=== PATIENT | male | born 1950 | race Caucasian/White ===

== ENCOUNTER 2019-04-07 01:48 | Outpatient (CLI) | payer MEDICARE ==
[2019-04-07 16:13] LABS: #Basophils 0.1 thou/uL (0.0-0.2); #Eosinphils 0.1 thou/uL (0.0-0.7); #Lymphocytes 1.4 thou/uL (1.20-3.40); #Monocytes 0.6 thou/uL (0.11-0.59); #Neutrophils 5.5 thou/uL (1.40-6.50); %Basophils 0.7 % (0.0-1.0); %Lymphocytes 18.3 % (21.0-51.0); %Monocytes 7.6 % (0.0-10.0); %Neutrophils 72.4 % (42.0-75.0); Hemoglobin 17.3 g/dL (14.0-18.0); Mean Corpuscular HGB CONC 32.6 g/dL (32.0-36.0); Mean Corpuscular Hemoglobin 29.9 pg (27.0-31.0); Mean Corpuscular Volume 91.8 fL (78.0-98.0); Mean Platelet Volume 6.8 fL (7.4-10.4); Platelet Count 175 thou/uL (130-400); RBC Distribution Width 14.3 % (11.5-14.5); Red Blood Cell (RBC) Count 5.77 mill/uL (4.70-6.10); White Blood Cell (WBC) Count 7.6 thou/uL (4.8-10.8)
[2019-04-07 16:18] LABS: PTT 31.4 SEC (22.9-36.1); Prothrombin Time 13.7 SEC (12.0-14.7)
[2019-04-07 16:34] LABS: Anion Gap 14 mmol/L (10-20); BUN (Urea Nitrogen) 9 mg/dL (8.4-25.7); Calc. Creatinine Clearance 0 mL/min (70-130); Calcium 9.6 mg/dL (7.8-10.44); Carbon Dioxide 25 mmol/L (23-31); Chloride 102 mmol/L (98-107); Estimated GFR-MDRD 62; Glucose 92 mg/dL (80-115); Sodium 137 mmol/L (136-145)
[2019-04-07 16:36] LABS: Bilirubin Negative (Negative); Blood, Urine Negative (Negative); Clarity CLEAR (Clear); Glucose, Urine (Dipstick) Negative (Negative); Leukocyte Negative (Negative); Nitrite Negative (Negative); Protein, Urine (Dipstick) Negative (Neg-Trace); Specific Gravity, Urine 1.007 (1.002-1.036); Urobilinogen 0.2 mg/dL (0.2-1.0)
[2019-04-07 16:37] LABS: Bacteria/HPF None Seen HPF (None Seen); Hyaline Casts/LPF 0-3 HYALINE CAST LPF (0-3 Hyaline); RBC/HPF 0-3 HPF (0-3); Squamous Epithelial None Seen HPF (0-3); WBC/HPF None Seen HPF (0-3)
--- NOTE | 2019-04-08 21:25 | EKG ---
Test Reason : Blood Pressure : / mmHG Vent. Rate : 057 BPM Atrial Rate : 057 BPM P-R Int : 168 ms QRS Dur : 096 ms QT Int : 426 ms P-R-T Axes : 065 -38 -07 degrees QTc Int : 414 ms Sinus bradycardia Left axis deviation Inferior infarct (cited on or before 30-APR-2017) Abnormal ECG When compared with ECG of 30-APR-2017 12:32, Sinus rhythm has replaced Atrial flutter Vent. rate has decreased BY 66 BPM Questionable change in initial forces of Inferior leads Confirmed by Servando PINEDA ([id number]) on 04/08/2019 9:25:02 PM Referred By: LUDWIN Confirmed By:Servando PINEDA
== END 2019-04-07 01:49 | disposition home or self-care (01) ==
LOC: LABBT 01:48
PROVIDERS: ATTEND Orthopaedic Surgery
DX: Z01.818 Encounter for other preprocedural examination (principal); M17.11 Unilateral primary osteoarthritis, right knee
CPT/HCPCS: 80048; 81001; 85025; 85610; 85730; 87081; 93005; 93010

== ENCOUNTER 2019-04-18 06:54 | Inpatient (IN) | payer MEDICARE ==
--- NOTE | 2019-04-14 13:14 | HP ---
HISTORY OF PRESENT ILLNESS: The patient is a 68-year-old male with a long history of progressive problems with the right knee without specific injury. He has had progressive pain with ambulation, which is persistent despite rest, restriction of activities, anti-inflammatory medications, and lifestyle adjustments. The pain is now interfering with day-to-day activities including walking, getting dressed, working and sleeping. PAST MEDICAL HISTORY: The patient is otherwise in good health. He has history of hypertension, thyroid replacement, hyperlipidemia, gout, and previous atrial fibrillation which was resolved. He has had a previous medial implant spacer in his left knee in [place] years ago and still functioning reasonably well. CURRENT MEDICATIONS: Include: 1. Vortioxetine. 2. Viagra. 3. Colchicine p.r.n. 4. Losartan. 5. Levothyroxine. 6. Pantoprazole. 7. P.r.n. Valium. ALLERGIES: HE HAS NO KNOWN ALLERGIES. FAMILY HISTORY: Otherwise unremarkable. SOCIAL HISTORY: Otherwise unremarkable. REVIEW OF SYSTEMS: Otherwise unremarkable. PHYSICAL EXAMINATION: GENERAL: This is a healthy male. HEENT: Unremarkable. NECK: Supple. CHEST: Clear. HEART: Regular rate and rhythm. ABDOMEN: Soft, nontender. RECTAL: Deferred. GENITAL: Deferred. EXTREMITIES: Pertinent findings of the right knee, there is mild puffiness. No definite effusion. There is moderate varus deformity. There is tenderness and crepitus over the medial joint line. Range of motion is 10 to 120 degrees. There is no instability. NEUROVASCULAR: Intact. Pulses are 2+. There is a right antalgic gait. DIAGNOSTIC STUDIES: X-rays of the right knee reveal [id number] collapse medially. IMPRESSION: 1. Degenerative arthritis, right knee. 2. History of hypertension. 3. History of thyroid replacement. 4. History of hyperlipidemia. PLAN: Right total knee replacement. The nature of the surgery, length of recovery, and potential complications such as infection, loss of motion, incomplete relief, delayed wound healing, neurovascular injury, thromboembolic embolic phenomena, possible transfusion, and need for revision have been discussed in detail. Job ID: [id number]
[2019-04-18] MEDS ORDERED: Sodium Chloride 0.9% 100 ML ONE (07:15)
[2019-04-18] MEDS ORDERED: Tranexamic Acid 1,000 MG/10 ML VIAL ONE ×2 (07:15→13:16)
[2019-04-18] MEDS ORDERED: Vancomycin HCl 1.5 GM in Sodium Chloride 0.9% 250 ML 300 ML IVPB SCH ×2 (07:15→20:00)
[2019-04-18] MEDS ORDERED: Midazolam HCl 2 mg/2 ml Vial ONE (07:42)
[2019-04-18] MEDS ORDERED: Fentanyl 100 MCG/2 ML VIAL ONE ×3 (07:42→12:12)
[2019-04-18] MEDS ORDERED: Ondansetron PF 4 MG/2 ML Vial IVP PRN ×2 (07:54→13:04)
[2019-04-18] MEDS ORDERED: Promethazine HCl 25 MG/ML VIAL IM PRN (07:54)
[2019-04-18] MEDS ORDERED: Ropivacaine HCl/PF 250 ML in Premix Bag 1 BAG NERVE BLCK SCH (07:54)
[2019-04-18] MEDS ORDERED: traMADol HCl 50 MG TAB PO PRN ×3 (07:54→13:04)
[2019-04-18] MEDS ORDERED: Zolpidem Tartrate 5 MG TAB PO PRN ×2 (07:54→13:04)
[2019-04-18] MEDS ORDERED: Fentanyl 100 MCG/2 ML VIAL SLOW IVP PRN ×3 (07:54→13:04)
[2019-04-18] MEDS ORDERED: Bupivacaine/Epinephrine 0.25% 30 ML VIAL ONE (09:05)
[2019-04-18] MEDS ORDERED: Ropivacaine 0.5% HCl/PF (150 MG/30 ML VIAL) ONE (10:25)
[2019-04-18] MEDS ORDERED: Ropivacaine 0.2% HCl/PF (40 MG/20 ML VIAL) ONE (10:25)
[2019-04-18] MEDS ORDERED: Metoprolol Tartrate 5 MG/5 ML VIAL ONE (10:43)
[2019-04-18] MEDS ORDERED: Ondansetron PF 4 MG/2 ML Vial ONE (10:43)
[2019-04-18] MEDS ORDERED: Lidocaine 1% PF 5 ML VIAL ONE (10:43)
[2019-04-18] MEDS ORDERED: Dexamethasone 20 MG/5 ML VIAL ONE (10:43)
[2019-04-18] MEDS ORDERED: PROPOFOL 200 MG/20 ML VIAL ONE (10:43)
[2019-04-18] MEDS ORDERED: Tranexamic Acid 1,000 MG in Sodium Chloride 0.9% 100 ML IVPB SCH ×2 (12:00→13:04)
--- NOTE | 2019-04-18 12:12 | RAD ---
XR Knee Rt 2 View History: Postop total knee Comparison: None. Findings: Satisfactory appearance right total knee arthroplasty and patellar resurfacing. Expected po stoperative gas and edema. Impression: Satisfactory postoperative alignment.
[2019-04-18] MEDS ORDERED: Diltiazem 125 MG in Sodium Chloride 0.9% 100 ML IVPB SCH (13:00)
[2019-04-18] MEDS ORDERED: Ketorolac Tromethamine 30 MG/ML VIAL IVP SCH (13:04)
[2019-04-18] MEDS ORDERED: Diazepam 2 MG TAB PO PRN (13:04)
[2019-04-18] MEDS ORDERED: diphenhydrAMINE 25 MG CAP PO PRN (13:04)
[2019-04-18] MEDS ORDERED: HYDROcodone/Acetaminophen 10/325 mg Tablet PO PRN ×2 (13:04)
[2019-04-18] MEDS ORDERED: Colchicine 0.3 MG TAB PO SCH (13:04)
[2019-04-18] MEDS ORDERED: Acetaminophen 325 MG TAB PO PRN (13:04)
[2019-04-18] MEDS ORDERED: Promethazine HCl 25 MG/ML VIAL SLOW IVP PRN (13:04)
--- NOTE | 2019-04-18 14:49 | OP ---
DATE OF PROCEDURE: 04/18/2019 LOFT RIGGER: Cathy De La Cruz PA-C ANESTHESIA: General plus adductor canal and sciatic nerve blocks. PREOPERATIVE DIAGNOSIS: Degenerative arthritis, right knee. POSTOPERATIVE DIAGNOSIS: Degenerative arthritis, right knee. PROCEDURE PERFORMED: Right total knee replacement with computer-assisted navigation with cemented [employer] components (#6 femoral component, #7 primary tibial base plate with 13 mm CS plastic insert, and all plastic A35 patellar component). DESCRIPTION OF PROCEDURE: After satisfactory anesthesia was induced in supine position, sequential compression device was placed on the nonoperative leg throughout the procedure. The right leg was then prepped and draped in the routine sterile fashion. The right leg was elevated and exsanguinated with an Esmarch bandage and the tourniquet was inflated to 300 mmHg. A gently curved medial parapatellar incision was made, carried down through the subcutaneous tissues, and bleeding points were controlled with Bovie cautery. Medial parapatellar arthrotomy was performed, and the patella was dislocated laterally. There was marked degenerative arthritis in the knee in all compartments, especially medially with large areas of exposed bone. The knee was quite tight and contracted, which made the procedure a little bit more difficult, but satisfactory arthroplasty was obtained. Meniscal remnants and osteophytes were removed. Using the appropriate guides and the BMP [employer] pinless navigation system, the distal femoral and proximal tibial articular surfaces were excised with an oscillating saw to accept the trial components. It was felt that a #6 femoral component, #7 tibial base plate with 13 mm CS plastic insert gave appropriate size, fit, stability, and correction of the preoperative deformity. The patellar articular surface was excised to accept an all plastic A35 patellar component. There was good range of motion and good patellar tracking. The trial components were removed. The knee was copiously irrigated with pulsatile lavage, and the bony surfaces were thoroughly cleaned and dried. The permanent components were then cemented in a single stage using one pack of cement premixed with 1 g of tobramycin powder. Excess cement was removed. There was again good fit and stability of the components. The knee was again thoroughly irrigated. The skin was injected with 30 mL of 0.25% Marcaine with epinephrine. The medial retinaculum and quadriceps mechanism were closed with interrupted #2 Vicryl and a running #2 Quill. Subcutaneous tissues were closed with a running 0 Quill suture and the skin closed with running subcuticular 3-0 Monoderm and SurgiSeal skin adhesive. A sterile bulky compressive dressing was applied, and the tourniquet deflated after 107 minutes. The foot promptly pinked up, and the sequential compression devices were placed on his operated leg. He was awakened and taken to recovery room in stable condition. There were no definite intraoperative complications, but the patient did have some arrhythmia intraoperatively, which may have been recurrent atrial fibrillation. A 12-lead EKG will be obtained in the recovery room. He was taken to the recovery room in stable condition. Job ID: [id number]
[2019-04-18] MEDS ORDERED: CEFAZOLIN 2 GM in Premix Bag 1 BAG IVPB SCH (15:00)
--- NOTE | 2019-04-18 15:38 | PDOC.PN ---
- Subjective Encounter Start Date: 04/18/19 Encounter Start Time: 15:34 Subjective: seen & examined in PACU.s/p R TKR.IM team consulted for a-fib w RVR post-op -: pt reports simliar episode 2 yrs ago after working in heat which resolved -: spontaneously.none since then.denies any CP/SOB/Palpitations now - Objective MAR Reviewed: Yes Vital Signs & Weight: Weight Weight 240 lb Phys Exam - Physical Examination Constitutional: NAD HEENT: PERRLA, moist MMs, sclera anicteric, oral pharynx no lesions Neck: no nodes, no JVD, supple, full ROM Respiratory: no wheezing, no rales, no rhonchi, clear to auscultation bilateral Cardiovascular: no significant murmur, irregular Gastrointestinal: soft, non-tender, no distention, positive bowel sounds Musculoskeletal: no edema, pulses present Neurological: non-focal, normal sensation, moves all 4 limbs Psychiatric: normal affect, A&O x 3 Skin: no rash Dx/Plan (1) Atrial fibrillation with RVR Code(s): I48.91 - UNSPECIFIED ATRIAL FIBRILLATION Status: Acute Comment: Start Cardiazem drip after 10 mg bolus.Avoid any anticoagulation as s/p knee surgery today.ECHO Consult cardiology as second episode (2) HTN (hypertension) Code(s): I10 - ESSENTIAL (PRIMARY) HYPERTENSION Status: Chronic Comment: cont home med.on Losartan (3) S/P total knee arthroplasty Code(s): Z96.659 - PRESENCE OF UNSPECIFIED ARTIFICIAL KNEE JOINT Status: Acute Qualifiers: Laterality: right Qualified Code(s): Z96.651 - Presence of right artificial knee joint Comment: Ot/PT,pain control per Primary team (4) Hypothyroid Code(s): E03.9 - HYPOTHYROIDISM, UNSPECIFIED Status: Chronic - Plan PT/OT, respiratory therapy, incentive spirometry, out of bed/ambulate, DVT proph w/SCDs Pt stopped Cardiazem that was started 2 years ago as a-fib resolved -: will get echo,cardiology consult. -: rate control w IV CCB for now.Better now but still a-fib .confirmed by EKG -: HD stable.will benefit from reducing Losartan and addition of PO CCB -: IM team will follow. all Qs answered * .Check BNP,Cardiac enzymes and monitor on tele * am labs * ASA BID for now and we will continue that Review of Systems - Review of Systems Constitutional: negative: fever, chills, sweats, weakness, malaise, other ENT: negative: Ear Pain, Ear Discharge, Nose Pain, Nose Discharge, Nose Congestion, Mouth Pain, Mouth Swelling, Throat Pain, Throat Swelling, Other Respiratory: negative: Cough, Dry, Shortness of Breath, Hemoptysis, SOB with Excertion, Pleuritic Pain, Sputum, Wheezing Cardiovascular: negative: chest pain, palpitations, orthopnea, paroxysmal nocturnal dyspnea, edema, light headedness, other Gastrointestinal: negative: Nausea, Vomiting, Abdominal Pain, Diarrhea, Constipation, Melena, Hematochezia, Other Genitourinary: negative: Dysuria, Frequency, Incontinence, Hematuria, Retention , Other Skin: negative: Rash, Lesions, Richar, Bruising, Other Neurological: negative: Weakness, Numbness, Incoordination, Change in Speech, Confusion, Seizures, Other - Medications/Allergies Allergies/Adverse Reactions: Allergies Allergy/AdvReac Type Severity Reaction Status Date / Time No Known Allergies Allergy Verified 04/07/19 12:31 Medications: Current Medications Acetaminophen (Tylenol) 650 mg PO Q4H PRN PRN Reason: Headache/Fever or Pain Hydrocodone Bitart/Acetaminophen ([place] 10/325) 1 tab PO Q4H PRN PRN Reason: Pain (1-3) Hydrocodone Bitart/Acetaminophen ([place] 10/325) 2 tab PO Q4H PRN PRN Reason: PAIN (4-6) Aspirin (Ecotrin) 81 mg PO BID [facility] Colchicine (Colcrys) 0.3 mg PO ASDIR [facility] Diazepam (Valium) 2 mg PO BID PRN PRN Reason: Anxiety Diphenhydramine HCl (Benadryl) 25 mg PO Q6H PRN PRN Reason: Itching Fentanyl (Sublimaze) 50 mcg SLOW IVP Q1H PRN PRN Reason: breakthrough pain Ferrous Gluconate (Fergon) 324 mg PO BID-[facility] Finasteride (Proscar) 5 mg PO DAILY TAY Ropivacaine 250 ml/ Device 250 mls @ 10 mls/hr NERVE BLCK INF TAY Diltiazem HCl 125 mg/ Sodium (Chloride) 125 mls @ 5 mls/hr IVPB INF TAY; Protocol Cefazolin Sodium/Dextrose 2 gm (/ Device) 50 mls @ 100 mls/hr IVPB 0700,1500, 2300 [facility] Stop: 04/18/19 23:29 Sodium Chloride (Normal Saline 0.9%) 1,000 mls @ 100 mls/hr IV .Q10H TAY Vancomycin HCl 1.5 gm/ Sodium (Chloride) 300 mls @ 200 mls/hr IVPB 2000 [facility] Stop: 04/18/19 21:29 Iron/Minerals/Multivitamins (Theragran M) 1 tab PO DAILY [facility] Levothyroxine Sodium (Synthroid) 100 mcg PO 0600 [facility] Losartan Potassium (Cozaar) 100 mg PO DAILY [facility] Ondansetron HCl (Zofran) 4 mg IVP Q6H PRN PRN Reason: Nausea/Vomiting Pantoprazole Sodium (Protonix) 40 mg PO HS [facility] Vortioxetine Hydrobromide [ Trintellix] 10 Mg 0 each PO DAILY [facility] Promethazine HCl (Phenergan) 12.5 mg IM Q4H PRN PRN Reason: Nausea Promethazine HCl (Phenergan) 12.5 mg SLOW IVP Q4H PRN PRN Reason: Nausea/Vomiting Senna/Docusate Sodium (Senokot S) 2 tab PO BID [facility] Sodium Chloride (Flush - Normal Saline) 10 ml IVF PRN PRN PRN Reason: Saline Flush Tramadol HCl (Ultram) 50 mg PO Q6H PRN PRN Reason: Mild Pain (1-3) Tramadol HCl (Ultram) 100 mg PO Q6H PRN PRN Reason: Moderate Pain 4-6 Zolpidem Tartrate (Ambien) 5 mg PO HSPRN PRN PRN Reason: Insomnia
[2019-04-18 16:13] LABS: Anion Gap 14 mmol/L (10-20); BUN (Urea Nitrogen) 12 mg/dL (8.4-25.7); Calc. Creatinine Clearance 97 mL/min (70-130); Calcium 8.6 mg/dL (7.8-10.44); Carbon Dioxide 25 mmol/L (23-31); Chloride 103 mmol/L (98-107); Estimated GFR-MDRD 64; Glucose 142 mg/dL (80-115); Potassium 4.8 mmol/L (3.5-5.1); Sodium 137 mmol/L (136-145)
[2019-04-18] MEDS: Sodium Chloride 0.9% 1,000 ML IV SCH (19:30)
[2019-04-18] MEDS: CEFAZOLIN 2 GM in Premix Bag 1 BAG IVPB SCH (21:11)
[2019-04-18] MEDS: HYDROcodone/Acetaminophen 10/325 mg Tablet PO PRN (21:16)
[2019-04-18] MEDS: Aspirin 81 mg Enteric Coated Tablet PO SCH (21:24)
--- NOTE | 2019-04-19 01:01 | CON ---
DATE OF CONSULTATION: 04/18/2019 REASON FOR CONSULTATION: Atrial fibrillation with RVR. HISTORY OF PRESENT ILLNESS: Mr. Sorto is a pleasant 68-year-old white gentleman, who comes to the hospital for right knee degenerative arthritis, right total knee replacement. He had this computer-assisted right total knee replacement performed earlier today by Dr. Lawrence Alford. He did well postoperatively, but developed atrial fibrillation with RVR, was started on a diltiazem drip, and eventually converted back to sinus rhythm. Cardiology has been consulted for further evaluation and care. He has a history of paroxysmal atrial fibrillation, last time was in April 2017. He was admitted for an episode of atrial fibrillation as well in the setting of being outside and getting overheated and feeling the palpitations. He came in. He did have a history at that time of paroxysmal atrial fibrillation as well, but his CHADS-VASc score was only 1 for hypertension. Now his CHADS-VASc score is 2 for hypertension at age above 65. He is back to sinus rhythm. He feels the atrial fibrillation with chest fluttering every time he gets it. PAST MEDICAL HISTORY: 1. Paroxysmal atrial fibrillation. 2. Hypertension. 3. Osteoarthritis. 4. Hypothyroidism. 5. Hyperlipidemia. 6. Gout. PAST SURGICAL HISTORY: 1. Right total knee replacement. 2. Previous left knee medial implant spacer. MEDICATIONS: Outpatient medications include; 1. Pantoprazole 40 mg at bedtime. 2. Brintellix 10 mg daily. 3. Losartan 100 mg a day. 4. Finasteride 5 mg a day. 5. Levothyroxine 100 mcg a day. 6. Aspirin 81 a day. 7. Diazepam 10 mg b.i.d. p.r.n. 8. Colchicine p.r.n. ALLERGIES: NO KNOWN DRUG ALLERGIES. SOCIAL HISTORY: No alcohol, tobacco, or drugs. REVIEW OF SYSTEMS: A 12-point review of systems was done and was all negative unless stated in the history of present illness. FAMILY HISTORY: Noncontributory. PHYSICAL EXAMINATION: VITAL SIGNS: Temperature 98.1, pulse 66, respiratory rate 18, saturating 98% on room air, and blood pressure 130/61. GENERAL: Awake, alert, and oriented x3, in no distress. HEENT: Normocephalic and atraumatic. LUNGS: Clear to auscultation bilaterally. CARDIOVASCULAR: S1 and S2. No S3 or S4. No murmurs. No rubs. ABDOMEN: Soft. Positive bowel sounds. EXTREMITIES: No edema. SKIN: Warm and dry. LABORATORY DATA: Laboratory work was reviewed. Basic metabolic profile is unremarkable. Troponin I is undetectable. BNP is 44. EKG was reviewed. ASSESSMENT: 1. Paroxysmal atrial fibrillation. 2. CHADS-VASc score of 2. 3. Status post knee replacement. PLAN: 1. We will stop diltiazem drip and we will transition to p.o. 2. We will get an echocardiogram and if LV function is normal, we will do flecainide 50 mg b.i.d. as an antiarrhythmic with his diltiazem as an AV awais blocking agent. 3. Given his CHADS-VASc score, he would be a candidate for full anticoagulation. We will plan on starting Eliquis 5 mg b.i.d. once safe from the surgical standpoint probably 1 week from now. 4. Echocardiogram to be done. Thank you for letting me to participate in the care of your patient. We will follow. Job ID: [id number]
[2019-04-19] MEDS: HYDROcodone/Acetaminophen 10/325 mg Tablet PO PRN ×5 (01:38→19:43)
[2019-04-19] MEDS: Sodium Chloride 0.9% 1,000 ML IV SCH ×3 (02:11→11:37)
[2019-04-19] MEDS: CEFAZOLIN 2 GM in Premix Bag 1 BAG IVPB SCH (02:13)
[2019-04-19] MEDS ORDERED: CEFAZOLIN 2 GM in Premix Bag 1 BAG IVPB SCH (05:00)
[2019-04-19] MEDS: Levothyroxine Sodium 100 MCG TAB PO SCH (05:39)
[2019-04-19 06:52] LABS: Hemoglobin 14.6 g/dL (14.0-18.0); Mean Corpuscular HGB CONC 32.7 g/dL (32.0-36.0); Mean Corpuscular Hemoglobin 29.6 pg (27.0-31.0); Mean Corpuscular Volume 90.6 fL (78.0-98.0); Mean Platelet Volume 6.6 fL (7.4-10.4); Platelet Count 153 thou/uL (130-400); RBC Distribution Width 14.1 % (11.5-14.5); Red Blood Cell (RBC) Count 4.95 mill/uL (4.70-6.10); White Blood Cell (WBC) Count 9.5 thou/uL (4.8-10.8)
[2019-04-19 07:03] LABS: Anion Gap 12 mmol/L (10-20); BUN (Urea Nitrogen) 11 mg/dL (8.4-25.7); Calc. Creatinine Clearance 117 mL/min (70-130); Calcium 8.4 mg/dL (7.8-10.44); Carbon Dioxide 26 mmol/L (23-31); Chloride 102 mmol/L (98-107); Estimated GFR-MDRD 70; Glucose 120 mg/dL (80-115); Potassium 3.8 mmol/L (3.5-5.1); Sodium 136 mmol/L (136-145)
[2019-04-19 07:48] LABS: Free T4 (Free Thyroxine) 1.18 ng/dL (0.70-1.48)
[2019-04-19 07:49] LABS: Thyroid Stimulating Hormone 4.517 uIU/mL (0.35-4.94)
--- NOTE | 2019-04-19 08:20 | PDOC.PN ---
- Subjective Encounter Start Date: 04/19/19 Encounter Start Time: 12:30 Subjective: Patient with severe right knee pain after PT. No more palpitations. No -: chest pain. No SOB. - Objective MAR Reviewed: Yes Vital Signs & Weight: Vital Signs (12 hours) Temp Pulse Resp BP Pulse Ox 04/19/19 03:40 98.4 F 64 15 153/66 H 98 04/19/19 00:10 98.8 F 67 12 128/63 100 Weight Weight 265 lb 4.8 oz I&O: 04/18/19 04/19/19 04/20/19 06:59 06:59 06:59 Output Total 300 Balance -300 Result Diagrams: 04/19/19 06:32 04/19/19 06:31 Radiology Reviewed by me: Yes (ECHO with EF 55-60%, diastolic dysfunction) Phys Exam - Physical Examination Constitutional: NAD HEENT: moist MMs Respiratory: no wheezing, no rales, no rhonchi Cardiovascular: RRR, no significant murmur Gastrointestinal: soft, non-tender, positive bowel sounds right knee in postop dressing c/d/i Neurological: non-focal Psychiatric: normal affect, A&O x 3 Dx/Plan (1) Atrial fibrillation with RVR Code(s): I48.91 - UNSPECIFIED ATRIAL FIBRILLATION Status: Acute Comment: Back in NSR, converted to po cardizem, ECHO pending, Flecanide, start Eliquis as soon as safe from a postop standpoint Dr. Ricardo following (2) S/P total knee arthroplasty Code(s): Z96.659 - PRESENCE OF UNSPECIFIED ARTIFICIAL KNEE JOINT Status: Acute Qualifiers: Laterality: right Qualified Code(s): Z96.651 - Presence of right artificial knee joint Comment: Ot/PT, pain control per Primary team (3) HTN (hypertension) Code(s): I10 - ESSENTIAL (PRIMARY) HYPERTENSION Status: Chronic Comment: cont home med. on Losartan (4) Hypothyroid Code(s): E03.9 - HYPOTHYROIDISM, UNSPECIFIED Status: Chronic - Plan cont current plan of care, PT/OT * . - Discharge Day Encounter end time: 12:40
[2019-04-19] MEDS: Losartan 25 MG TAB PO SCH (08:53)
[2019-04-19] MEDS: Finasteride 5 MG TAB PO SCH (08:53)
[2019-04-19] MEDS: Multivitamin W/ Minerals 1 TAB PO SCH (08:54)
[2019-04-19] MEDS: Ferrous Gluconate 324 MG TAB PO SCH ×2 (08:54→16:27)
[2019-04-19] MEDS: Aspirin 81 mg Enteric Coated Tablet PO SCH ×2 (08:54→19:53)
[2019-04-19] MEDS ORDERED: Losartan 25 MG TAB PO SCH (09:00)
[2019-04-19] MEDS: Senokot S 8.6-50 MG TAB PO SCH ×2 (10:11→19:53)
--- NOTE | 2019-04-19 19:38 | PDOC.CTH ---
Cardiology Progress Note - Subjective No new issues. - Objective Vital Signs Temp Pulse Pulse Pulse Resp BP BP 04/19/19 15:29 98.1 F 89 13 04/19/19 12:39 98.1 F 99 17 04/19/19 09:30 98 82 142/62 H 168/78 H 04/19/19 08:49 99.3 F 78 18 BP Pulse Ox 04/19/19 15:29 136/68 97 04/19/19 12:39 154/63 H 98 04/19/19 09:30 04/19/19 08:49 149/68 H 99 Admit Weight 265 lb 4.8 oz Weight 265 lb 4.8 oz 04/18/19 04/19/19 04/20/19 06:59 06:59 06:59 Intake Total 1630 Output Total 750 Balance 880 - Physical Examination General/Neuro: alert & oriented x3, NAD Neck: no JVD present Lungs: CTA, unlabored respirations Heart: RRR Abdomen: NT/ND Extremities: + edema B (no edema) - Telemetry Telemetry Rhythm: NSR - Labs Result Diagrams: 04/19/19 06:32 04/19/19 06:31 Troponin/CKMB Troponin I Less than 0.010 ng/mL (< 0.028) 04/18/19 15:37 - Assessment/Plan 1. Paroxysmal afib 2. CHADS VASC score of 2 3. S/P Knee replacement. 4. HTN PLAN: - Normal LV function. - Will start flecainide, continue diltiazem. - We spoke about anticoagulation and he has decided that if his co pay is going to be too high he would rather just go ahead with warfarin. - Will refer to coumadin clinic as an outpatient to initiate therapy once feasible from knee perspective.
[2019-04-19] MEDS: Flecainide 50 MG TAB PO SCH (19:54)
[2019-04-20] MEDS: HYDROcodone/Acetaminophen 10/325 mg Tablet PO PRN ×5 (03:58→22:25)
[2019-04-20] MEDS: Levothyroxine Sodium 100 MCG TAB PO SCH (03:58)
--- NOTE | 2019-04-20 07:54 | PDOC.PN ---
- Subjective Encounter Start Date: 04/20/19 Encounter Start Time: 09:50 Subjective: Patient with low grade fever to 100.3 overnight. No other new complaints. -: No CP/SOB/cough/N/V. Some sore throat from intubation improving. Right knee -: pain much improved today. - Objective MAR Reviewed: Yes Vital Signs & Weight: Vital Signs (12 hours) Temp Pulse Resp BP Pulse Ox 04/20/19 07:15 98.9 F 84 18 131/65 94 L 04/20/19 05:35 99.3 F 04/20/19 03:50 100.3 F H 87 17 138/68 96 04/19/19 21:20 99.3 F Weight Admit Weight 265 lb 4.8 oz Weight 267 lb 3.2 oz I&O: 04/19/19 04/20/19 04/21/19 06:59 06:59 06:59 Intake Total 1630 1320 Output Total 750 1000 Balance 880 320 Result Diagrams: 04/19/19 06:32 04/19/19 06:31 Phys Exam - Physical Examination Constitutional: NAD HEENT: moist MMs Respiratory: no wheezing, no rales, no rhonchi, clear to auscultation bilateral Cardiovascular: RRR, no significant murmur Gastrointestinal: soft, positive bowel sounds Musculoskeletal: no edema right knee postop dressing in place Neurological: non-focal, moves all 4 limbs Psychiatric: normal affect, A&O x 3 Dx/Plan (1) Atrial fibrillation with RVR Code(s): I48.91 - UNSPECIFIED ATRIAL FIBRILLATION Status: Acute Comment: Back in NSR, converted to po cardizem, ECHO pending, Flecanide, start Coumadin as soon as safe from a postop standpoint Dr. Ricardo following (2) S/P total knee arthroplasty Code(s): Z96.659 - PRESENCE OF UNSPECIFIED ARTIFICIAL KNEE JOINT Status: Acute Qualifiers: Laterality: right Qualified Code(s): Z96.651 - Presence of right artificial knee joint Comment: OT/PT, pain control per Primary team (3) HTN (hypertension) Code(s): I10 - ESSENTIAL (PRIMARY) HYPERTENSION Status: Chronic Comment: cont home med. on Losartan (4) Hypothyroid Code(s): E03.9 - HYPOTHYROIDISM, UNSPECIFIED Status: Chronic (5) Elevated temperature Code(s): R50.9 - FEVER, UNSPECIFIED Status: Acute Comment: Tmax 100.3, will check for DVT postop, WBC normal - Plan cont current plan of care, PT/OT, DVT proph w/SCDs ok to d/c home from out standpoint if the LE U/S neg for DVT, needs to -: start Coumadin when ok'd by ortho. * . - Discharge Day Encounter end time: 10:00
[2019-04-20] MEDS: Aspirin 81 mg Enteric Coated Tablet PO SCH ×2 (08:21→20:44)
[2019-04-20] MEDS: Finasteride 5 MG TAB PO SCH (08:21)
[2019-04-20] MEDS: Senokot S 8.6-50 MG TAB PO SCH ×2 (08:21→20:45)
[2019-04-20] MEDS: Ferrous Gluconate 324 MG TAB PO SCH ×2 (08:21→18:29)
[2019-04-20] MEDS: Flecainide 50 MG TAB PO SCH ×2 (08:22→20:45)
[2019-04-20] MEDS: VORTIOXETINE HYDROBROMIDE 10 MG PO SCH (08:22)
[2019-04-20] MEDS: Multivitamin W/ Minerals 1 TAB PO SCH (08:22)
[2019-04-20] MEDS: Losartan 25 MG TAB PO SCH (08:34)
[2019-04-20] MEDS: Sodium Chloride 0.9% 1,000 ML IV SCH (13:00)
--- NOTE | 2019-04-20 13:40 | ULT ---
US Venous Doppler Bilat HISTORY: Bilateral leg pain and swelling after surgery for knee replacement. COMPARISON: None. FINDINGS: Real-time color Doppler evaluation the right and left lower extremities were performed from groin to calf. This includes evaluation the common femoral superficial and profunda femoral, saphenous, popliteal and posterior tibial veins. This shows patent deep venous systems with normal compressibility and augmentation. There is no evide nce of DVT. IMPRESSION: No evidence of DVT of either lower extremity.
--- NOTE | 2019-04-20 19:04 | PDOC.CTH ---
Cardiology Progress Note - Subjective Doing well. No new issues. - Objective Vital Signs Temp Pulse Resp BP Pulse Ox 04/20/19 07:15 98.9 F 84 18 131/65 94 L 04/20/19 07:10 94 L Admit Weight 265 lb 4.8 oz Weight 267 lb 3.2 oz 04/19/19 04/20/19 04/21/19 06:59 06:59 06:59 Intake Total 1630 1320 800 Output Total 750 1000 Balance 880 320 800 - Physical Examination General/Neuro: alert & oriented x3, NAD Neck: no JVD present Lungs: CTA, unlabored respirations Heart: RRR Abdomen: NT/ND Extremities: other: (no edema) - Labs Result Diagrams: 04/19/19 06:32 04/19/19 06:31 Troponin/CKMB Troponin I Less than 0.010 ng/mL (< 0.028) 04/18/19 15:37 - Assessment/Plan 1. Paroxysmal afib 2. CHADS VASC score of 2 3. S/P Knee replacement. 4. HTN PLAN: - Normal LV function. - Continue flecainide, continue diltiazem. - I spoke with Dr. Alford and he would be ok with starting anticoagulation in 2 weeks. - Will refer to coumadin clinic as an outpatient to initiate therapy in one month.
[2019-04-21] MEDS: HYDROcodone/Acetaminophen 10/325 mg Tablet PO PRN ×3 (02:32→10:31)
[2019-04-21 04:26] VITALS: BMI 36.2
[2019-04-21] MEDS: Levothyroxine Sodium 100 MCG TAB PO SCH (06:27)
[2019-04-21] MEDS: Multivitamin W/ Minerals 1 TAB PO SCH (08:32)
[2019-04-21] MEDS: Aspirin 81 mg Enteric Coated Tablet PO SCH (08:32)
[2019-04-21] MEDS: Flecainide 50 MG TAB PO SCH (08:33)
[2019-04-21] MEDS: Ferrous Gluconate 324 MG TAB PO SCH (08:33)
[2019-04-21] MEDS: Losartan 25 MG TAB PO SCH (08:33)
[2019-04-21] MEDS: Finasteride 5 MG TAB PO SCH (08:34)
[2019-04-21] MEDS: VORTIOXETINE HYDROBROMIDE 10 MG PO SCH (08:35)
[2019-04-21] MEDS: Senokot S 8.6-50 MG TAB PO SCH (08:35)
[2019-04-21] MEDS: Sodium Chloride 0.9% 1,000 ML IV SCH (11:07)
[2019-04-21 11:52] VITALS: BP 119/76; TEMP 98.4
== END 2019-04-21 13:53 | disposition home or self-care (01) | DRG 470 ==
LOC: SDC 06:54 → 2NO 19:16 → SJJU 04-20 11:27
PROVIDERS: ADMIT Orthopaedic Surgery; ATTEND Orthopaedic Surgery
PROC: 0SRC0J9 Replacement of Right Knee Joint with Synthetic Substitute, Cemented, Open Approach (ICD-10-PCS; principal; 2019-04-18)
PROC: 8E0YXBZ Computer Assisted Procedure of Lower Extremity (ICD-10-PCS; 2019-04-18)
DX: M17.11 Unilateral primary osteoarthritis, right knee (principal); I10 Essential (primary) hypertension; E78.5 Hyperlipidemia, unspecified; M10.9 Gout, unspecified; I48.0 Paroxysmal atrial fibrillation; Z96.652 Presence of left artificial knee joint; E03.9 Hypothyroidism, unspecified; Z79.899 Other long term (current) drug therapy; Z79.82 Long term (current) use of aspirin
CPT/HCPCS: 36415; 80048; 83880; 84439; 84443; 84484; 85027; 93005; 93010; 93306; 93970; C1713; C1776; J0690; J1100; J2001; J2250; J2405; J2704; J2795; J3010; J3370; J3490; J7050

== ENCOUNTER 2021-08-05 19:30 | Outpatient (CLI) | payer MEDICARE | END 2021-08-05 19:31 | disposition home or self-care (01) | LOC: SLEEPLAB 19:30 | PROVIDERS: ATTEND Family Medicine | DX: G47.33 Obstructive sleep apnea (adult) (pediatric) (principal); G47.00 Insomnia, unspecified; R53.83 Other fatigue; R40.0 Somnolence; R09.89 Other specified symptoms and signs involving the circulatory and respiratory systems; E66.9 Obesity, unspecified; R06.83 Snoring; I10 Essential (primary) hypertension; F41.8 Other specified anxiety disorders; Z68.38 Body mass index [BMI] 38.0-38.9, adult | CPT/HCPCS: 95811 ==

== ENCOUNTER 2021-08-13 19:00 | Outpatient (CLI) | payer MEDICARE | END 2021-08-13 19:01 | disposition home or self-care (01) | LOC: SLEEPLAB 19:00 | PROVIDERS: ATTEND Family Medicine | DX: G47.33 Obstructive sleep apnea (adult) (pediatric) (principal); R53.83 Other fatigue; R06.83 Snoring; R09.89 Other specified symptoms and signs involving the circulatory and respiratory systems; F41.9 Anxiety disorder, unspecified; F32.9 Major depressive disorder, single episode, unspecified; G47.00 Insomnia, unspecified; I10 Essential (primary) hypertension; E11.9 Type 2 diabetes mellitus without complications; I48.91 Unspecified atrial fibrillation; G47.10 Hypersomnia, unspecified; E66.9 Obesity, unspecified; Z68.38 Body mass index [BMI] 38.0-38.9, adult | CPT/HCPCS: 95811 ==

== ENCOUNTER 2021-09-21 07:51 | Inpatient (IN) | payer MEDICARE ==
[2021-09-21 08:20] LABS: #Basophils 0.1 thou/uL (0.0-0.2); #Eosinphils 0.1 thou/uL (0.0-0.7); #Lymphocytes 1.3 thou/uL (1.20-3.40); #Monocytes 0.8 thou/uL (0.11-0.59); #Neutrophils 7.1 thou/uL (1.40-6.50); %Basophils 0.6 % (0.0-1.0); %Eosinophils 1.4 % (0.0-10.0); %Lymphocytes 13.5 % (21.0-51.0); %Monocytes 8.4 % (0.0-10.0); %Neutrophils 76.2 % (42.0-75.0); Hemoglobin 15.6 g/dL (14.0-18.0); Mean Corpuscular HGB CONC 32.8 g/dL (32.0-36.0); Mean Corpuscular Hemoglobin 30.2 pg (27.0-31.0); Mean Corpuscular Volume 92.2 fL (78.0-98.0); Mean Platelet Volume 6.4 fL (7.4-10.4); Platelet Count 234 thou/uL (130-400); RBC Distribution Width 14.3 % (11.5-14.5); Red Blood Cell (RBC) Count 5.17 mill/uL (4.70-6.10); White Blood Cell (WBC) Count 9.4 thou/uL (4.8-10.8)
[2021-09-21 08:31] LABS: INR-International Normal Ratio 2.8; Prothrombin Time 30.4 sec (12.0-14.7)
[2021-09-21 08:41] LABS: ALT (SGPT) 105 U/L (8-55); AST (SGOT) 57 U/L (5-34); Alkaline Phosphatase 61 U/L (40-110); Anion Gap 14 mmol/L (10-20); BUN (Urea Nitrogen) 10 mg/dL (8.4-25.7); Calc. Creatinine Clearance 0 mL/min (70-130); Calcium 8.9 mg/dL (7.8-10.44); Carbon Dioxide 24 mmol/L (23-31); Chloride 100 mmol/L (98-107); Globulin 3.2 g/dL (2.4-3.5); Glucose 201 mg/dL (80-115); Lipase 21 U/L (8-78); Potassium 4.3 mmol/L (3.5-5.1); Protein, Total 7.2 g/dL (5.8-8.1); Sodium 134 mmol/L (136-145)
[2021-09-21] MEDS ORDERED: Aspirin Chewable 81 MG TAB ONE (09:19)
[2021-09-21] MEDS ORDERED: Senokot S 8.6-50 MG TAB PO PRN (09:36)
[2021-09-21] MEDS ORDERED: Thiamine 100 MG TAB PO SCH (10:00)
[2021-09-21 10:40] LABS: Free T4 (Free Thyroxine) 1.13 ng/dL (0.70-1.48)
[2021-09-21 11:55] LABS: Troponin I Less than 0.010 ng/mL (< 0.028)
[2021-09-21 12:29] VITALS: BMI 38.7
[2021-09-21 14:20] LABS: Troponin I Less than 0.010 ng/mL (< 0.028)
[2021-09-21] MEDS: Furosemide 40 MG/4 ML VIAL SLOW IVP SCH (15:14)
[2021-09-21 16:29] LABS: SARS-CoV-2 PCR by NAA Not Detected (NotDetected)
[2021-09-21] MEDS: Diltiazem 125 MG in Sodium Chloride 0.9% 100 ML IVPB SCH (17:19)
[2021-09-21] MEDS ORDERED: FLU VACC QS2021-22(65YR UP)/PF 240 MCG/0.7 ML SYRINGE IM ONE (21:00)
[2021-09-21] MEDS ORDERED: Flecainide 50 MG TAB PO SCH (21:00)
[2021-09-22 05:37] LABS: #Basophils 0.1 thou/uL (0.0-0.2); #Eosinphils 0.2 thou/uL (0.0-0.7); #Lymphocytes 1.5 thou/uL (1.20-3.40); #Monocytes 0.8 thou/uL (0.11-0.59); #Neutrophils 4.6 thou/uL (1.40-6.50); %Eosinophils 2.6 % (0.0-10.0); %Lymphocytes 20.9 % (21.0-51.0); %Monocytes 11.2 % (0.0-10.0); %Neutrophils 64.3 % (42.0-75.0); Hemoglobin 14.7 g/dL (14.0-18.0); Mean Corpuscular HGB CONC 32.9 g/dL (32.0-36.0); Mean Corpuscular Hemoglobin 30.3 pg (27.0-31.0); Mean Platelet Volume 6.1 fL (7.4-10.4); Platelet Count 221 thou/uL (130-400); RBC Distribution Width 14.4 % (11.5-14.5); Red Blood Cell (RBC) Count 4.86 mill/uL (4.70-6.10); White Blood Cell (WBC) Count 7.1 thou/uL (4.8-10.8)
[2021-09-22 06:01] LABS: ALT (SGPT) 76 U/L (8-55); AST (SGOT) 34 U/L (5-34); Albumin 3.8 g/dL (3.4-4.8); Alkaline Phosphatase 50 U/L (40-110); Anion Gap 12 mmol/L (10-20); BUN (Urea Nitrogen) 11 mg/dL (8.4-25.7); Bilirubin, Total 1.1 mg/dL (0.2-1.2); Calc. Creatinine Clearance 101 mL/min (70-130); Calcium 8.6 mg/dL (7.8-10.44); Carbon Dioxide 28 mmol/L (23-31); Chloride 102 mmol/L (98-107); Globulin 2.8 g/dL (2.4-3.5); Glucose 126 mg/dL (80-115); Potassium 4.1 mmol/L (3.5-5.1); Protein, Total 6.6 g/dL (5.8-8.1); Sodium 138 mmol/L (136-145)
[2021-09-22] MEDS: Furosemide 40 MG/4 ML VIAL SLOW IVP SCH ×2 (06:46→14:41)
[2021-09-22] MEDS: Levothyroxine Sodium 100 MCG TAB PO SCH (06:47)
[2021-09-22] MEDS: Losartan 25 MG TAB PO SCH (09:18)
[2021-09-22] MEDS: Thiamine 100 MG TAB PO SCH (09:18)
[2021-09-22] MEDS: Finasteride 5 MG TAB PO SCH (09:18)
[2021-09-22 09:57] LABS: INR-International Normal Ratio 2.3; Prothrombin Time 25.7 sec (12.0-14.7)
[2021-09-22] MEDS: Diltiazem 125 MG in Sodium Chloride 0.9% 100 ML IVPB SCH (11:16)
[2021-09-22] MEDS: Carvedilol 6.25 MG TAB PO SCH (16:59)
[2021-09-22] MEDS ORDERED: Warfarin Sodium 5 MG TAB PO SCH (17:00)
[2021-09-22] MEDS: Diazepam 2 MG TAB PO PRN (20:48)
[2021-09-23 06:09] LABS: INR-International Normal Ratio 1.9; Prothrombin Time 21.9 sec (12.0-14.7)
[2021-09-23] MEDS: Levothyroxine Sodium 100 MCG TAB PO SCH (06:15)
[2021-09-23] MEDS ORDERED: Communication Order-Pharmacy FS SCH (12:30)
[2021-09-23] MEDS: Vortioxetine Hydrobromide [Trintellix] 10 MG Tablet PO SCH (12:30)
[2021-09-23] MEDS: Losartan 25 MG TAB PO SCH (13:55)
[2021-09-23] MEDS: Thiamine 100 MG TAB PO SCH (13:56)
[2021-09-23] MEDS: Furosemide 40 MG/4 ML VIAL SLOW IVP SCH ×2 (13:57→17:04)
[2021-09-23] MEDS: Finasteride 5 MG TAB PO SCH (13:57)
[2021-09-23] MEDS: Carvedilol 6.25 MG TAB PO SCH ×2 (13:58→17:23)
[2021-09-23] MEDS ORDERED: Warfarin Sodium 7.5 MG TAB PO SCH (17:00)
[2021-09-23] MEDS: Enoxaparin Sodium 120 MG/0.8 ML SYRINGE SC SCH (21:22)
[2021-09-23] MEDS: Diazepam 2 MG TAB PO PRN (21:46)
[2021-09-24 05:40] LABS: INR-International Normal Ratio 1.8; Prothrombin Time 21.4 sec (12.0-14.7)
[2021-09-24] MEDS: Furosemide 40 MG/4 ML VIAL SLOW IVP SCH ×2 (05:44→14:47)
[2021-09-24] MEDS: Levothyroxine Sodium 100 MCG TAB PO SCH (05:44)
[2021-09-24] MEDS: Losartan 25 MG TAB PO SCH (09:00)
[2021-09-24] MEDS: Finasteride 5 MG TAB PO SCH (09:02)
[2021-09-24] MEDS: Thiamine 100 MG TAB PO SCH (09:02)
[2021-09-24] MEDS: Enoxaparin Sodium 120 MG/0.8 ML SYRINGE SC SCH ×2 (09:02→20:36)
[2021-09-24] MEDS: Carvedilol 6.25 MG TAB PO SCH ×2 (09:04→17:23)
[2021-09-24] MEDS: Vortioxetine Hydrobromide [Trintellix] 10 MG Tablet PO SCH (14:00)
[2021-09-24] MEDS ORDERED: Warfarin Sodium 5 MG TAB PO SCH (17:00)
[2021-09-24] MEDS: Diazepam 2 MG TAB PO PRN (20:36)
[2021-09-25 05:16] LABS: INR-International Normal Ratio 1.6; Prothrombin Time 18.9 sec (12.0-14.7)
[2021-09-25] MEDS: Furosemide 40 MG/4 ML VIAL SLOW IVP SCH ×3 (05:38→17:49)
[2021-09-25] MEDS: Levothyroxine Sodium 100 MCG TAB PO SCH (05:38)
[2021-09-25] MEDS ORDERED: Sodium Chloride 0.9% 1,000 ML IV SCH (06:00)
[2021-09-25] MEDS ORDERED: Heparin 10,000 UNITS/ 10 ML VIAL ONE (06:52)
[2021-09-25] MEDS ORDERED: Nitroglycerin 100MG/250ML BOT 250 ML ONE (06:52)
[2021-09-25] MEDS ORDERED: Verapamil 5 MG/2 ML VIAL ONE (06:52)
[2021-09-25] MEDS ORDERED: Fentanyl 100 MCG/2 ML VIAL ONE (07:33)
[2021-09-25] MEDS ORDERED: Midazolam HCl 2 mg/2 ml Vial ONE (07:33)
[2021-09-25] MEDS ORDERED: Sodium Chloride 0.9% 200 ML IV PRN (08:08)
[2021-09-25] MEDS ORDERED: Acetaminophen/Codeine 30-300mg Tablet PO PRN (08:08)
[2021-09-25] MEDS ORDERED: Sodium Chloride 0.9% 250 ML IV SCH (08:15)
[2021-09-25] MEDS ORDERED: Iopamidol 370 76% 100 ML VIAL ONE (09:27)
[2021-09-25] MEDS ORDERED: Enoxaparin Sodium 30 MG/0.3 ML SYRINGE SC SCH (11:00)
[2021-09-25] MEDS ORDERED: Enoxaparin Sodium 120 MG/0.8 ML SYRINGE SC SCH (11:00)
[2021-09-25] MEDS ORDERED: Enoxaparin Sodium 100 MG/ML SYRINGE SC SCH (11:00)
[2021-09-25] MEDS: Vortioxetine Hydrobromide [Trintellix] 10 MG Tablet PO SCH (12:00)
[2021-09-25] MEDS ORDERED: PROPOFOL 20 ML ONE (15:03)
[2021-09-25] MEDS ORDERED: PROPOFOL 200 MG/20 ML VIAL ONE (15:09)
[2021-09-25] MEDS: Carvedilol 6.25 MG TAB PO SCH ×2 (16:58→17:46)
[2021-09-25] MEDS: Amiodarone 200 MG TAB PO SCH ×2 (16:58→20:56)
[2021-09-25] MEDS: Losartan 25 MG TAB PO SCH (17:47)
[2021-09-25] MEDS: Finasteride 5 MG TAB PO SCH (17:48)
[2021-09-25] MEDS: Thiamine 100 MG TAB PO SCH (17:48)
[2021-09-25] MEDS: Enoxaparin Sodium 30 MG/0.3 ML SYRINGE SC SCH (20:57)
[2021-09-25] MEDS: Diazepam 2 MG TAB PO PRN (20:57)
[2021-09-25] MEDS: Enoxaparin Sodium 100 MG/ML SYRINGE SC SCH (20:57)
[2021-09-26] MEDS: Levothyroxine Sodium 100 MCG TAB PO SCH (05:31)
[2021-09-26] MEDS: Furosemide 40 MG/4 ML VIAL SLOW IVP SCH ×2 (05:31→18:50)
[2021-09-26 05:52] LABS: INR-International Normal Ratio 1.4; Prothrombin Time 17.4 sec (12.0-14.7)
[2021-09-26] MEDS: Vortioxetine Hydrobromide [Trintellix] 10 MG Tablet PO SCH (09:19)
[2021-09-26] MEDS: Losartan 25 MG TAB PO SCH (09:19)
[2021-09-26] MEDS: Carvedilol 6.25 MG TAB PO SCH ×2 (09:20→18:50)
[2021-09-26] MEDS: Finasteride 5 MG TAB PO SCH (09:21)
[2021-09-26] MEDS: Thiamine 100 MG TAB PO SCH (09:21)
[2021-09-26] MEDS: Amiodarone 200 MG TAB PO SCH ×2 (09:21→21:09)
[2021-09-26] MEDS: Enoxaparin Sodium 100 MG/ML SYRINGE SC SCH ×2 (09:22→21:08)
[2021-09-26] MEDS: Enoxaparin Sodium 30 MG/0.3 ML SYRINGE SC SCH ×2 (09:22→21:08)
[2021-09-26 20:11] VITALS: BP 116/82; TEMP 98.3
[2021-09-26] MEDS: Diazepam 2 MG TAB PO PRN (21:12)
== END 2021-09-26 21:24 | disposition home or self-care (01) | DRG 286 ==
LOC: ERS 07:51 → 2SW 09:26 → OBSVTOIN 09-22 12:18
PROVIDERS: ADMIT Internal Medicine; ATTEND Internal Medicine
PROC: 4A023N7 Measurement of Cardiac Sampling and Pressure, Left Heart, Percutaneous Approach (ICD-10-PCS; principal; 2021-09-25)
PROC: B2111ZZ Fluoroscopy of Multiple Coronary Arteries using Low Osmolar Contrast (ICD-10-PCS; 2021-09-25)
PROC: B2151ZZ Fluoroscopy of Left Heart using Low Osmolar Contrast (ICD-10-PCS; 2021-09-25)
PROC: 4A033BC Measurement of Arterial Pressure, Coronary, Percutaneous Approach (ICD-10-PCS; 2021-09-25)
PROC: 5A2204Z Restoration of Cardiac Rhythm, Single (ICD-10-PCS; 2021-09-25)
DX: I11.0 Hypertensive heart disease with heart failure (principal); I50.21 Acute systolic (congestive) heart failure; I48.4 Atypical atrial flutter; F10.20 Alcohol dependence, uncomplicated; N40.0 Benign prostatic hyperplasia without lower urinary tract symptoms; F41.9 Anxiety disorder, unspecified; I42.0 Dilated cardiomyopathy; Z20.822 Contact with and (suspected) exposure to COVID-19; G47.33 Obstructive sleep apnea (adult) (pediatric); Z79.01 Long term (current) use of anticoagulants; Z79.890 Hormone replacement therapy; Z79.899 Other long term (current) drug therapy; I48.0 Paroxysmal atrial fibrillation; M19.90 Unspecified osteoarthritis, unspecified site; E03.9 Hypothyroidism, unspecified; E78.5 Hyperlipidemia, unspecified; M10.9 Gout, unspecified; Z87.442 Personal history of urinary calculi; Z96.651 Presence of right artificial knee joint
CPT/HCPCS: 36415; 71045; 80053; 82565; 83690; 83880; 84439; 84443; 84481; 84484; 85025; 85379; 85610; 92960; 93005; 93306; 93312; 93458; 96365; 96366; 96376; 97139; G0378; J1644; J1650; J1940; J2250; J2704; J3010; J3490; J7050; Q9967; U0003; U0005

== ENCOUNTER 2022-07-30 13:38 | Outpatient (CLI) | payer MEDICARE ==
[2022-07-30 14:22] LABS: Hemoglobin 16.2 g/dL (13.5-17.5); Mean Corpuscular HGB CONC 33.1 g/dL (32.0-36.0); Mean Corpuscular Hemoglobin 30.1 pg (27.0-33.0); Mean Corpuscular Volume 91.1 fl (81.2-95.1); Mean Platelet Volume 8.4 fl (7.4-10.4); Platelet Count 227 10x3/uL (150-450); RBC Distribution Width 14.8 % (11.5-14.5); Red Blood Cell (RBC) Count 5.38 10x6/uL (4.32-5.72); White Blood Cell (WBC) Count 6.9 10x3/uL (3.5-10.5)
[2022-07-30 14:51] LABS: INR-International Normal Ratio 2.8; PTT 43.8 sec (22.0-33.0); Prothrombin Time 28.8 sec (9.5-12.1)
[2022-07-30 14:58] LABS: Anion Gap 14 mmol/L (10-20); BUN (Urea Nitrogen) 15 mg/dL (8.4-25.7); Calc. Creatinine Clearance 0 mL/min (70-130); Calcium 8.7 mg/dL (7.8-10.44); Carbon Dioxide 25 mmol/L (23-31); Chloride 104 mmol/L (98-107); Estimated GFR 60; Glucose 126 mg/dL (80-115); Potassium 4.2 mmol/L (3.5-5.1); Sodium 139 mmol/L (136-145)
== END 2022-07-30 13:39 | disposition home or self-care (01) ==
LOC: LABBT 13:38
PROVIDERS: ATTEND Internal Medicine Cardiovascular Disease
DX: Z01.818 Encounter for other preprocedural examination (principal); I48.19 Other persistent atrial fibrillation; I50.22 Chronic systolic (congestive) heart failure; Z20.822 Contact with and (suspected) exposure to COVID-19; Z92.29 Personal history of other drug therapy
CPT/HCPCS: 80048; 85027; 85610; 85730; 87811; 93005; 93010

== ENCOUNTER 2022-08-04 05:52 | Day surgery (SDC) | payer MEDICARE ==
[2022-07-30 15:46] VITALS: BMI 39.2
[2022-08-04] MEDS ORDERED: Heparin 10,000 UNITS/ 10 ML VIAL ONE (06:54)
[2022-08-04] MEDS ORDERED: Protamine Sulfate 50 MG/5 ML VIAL ONE (06:54)
[2022-08-04] MEDS ORDERED: Heparin 25,000 units/D5W 500 ML ONE (06:54)
[2022-08-04] MEDS ORDERED: Fentanyl 100 MCG/2 ML VIAL ONE (07:20)
[2022-08-04] MEDS ORDERED: Esmolol 100 MG/10 ML VIAL ONE (07:40)
[2022-08-04] MEDS ORDERED: PHENYLEPHRINE-NS 100 MCG/ML 10 ML SYRINGE ONE (07:40)
[2022-08-04] MEDS ORDERED: ePHEDrine 50 MG/ML VIAL ONE (07:40)
[2022-08-04] MEDS ORDERED: Dexamethasone 20 MG/5 ML VIAL ONE (07:40)
[2022-08-04] MEDS ORDERED: PROPOFOL 200 MG/20 ML VIAL ONE (07:40)
[2022-08-04] MEDS ORDERED: Lidocaine 1% PF 5 ML VIAL ONE (07:40)
[2022-08-04] MEDS ORDERED: Rocuronium Bromide 10 MG/ML (10ML VIAL) ONE (07:40)
[2022-08-04 07:57] LABS: INR-International Normal Ratio 2.3; Prothrombin Time 25.5 sec (12.0-14.7)
[2022-08-04 07:59] LABS: PTT 44.8 sec (22.9-36.1)
[2022-08-04] MEDS ORDERED: Isoproterenol 0.2 MG/1 ML AMP ONE (09:01)
[2022-08-04] MEDS ORDERED: SUGAMMADEX SODIUM 200 MG/2 ML VIAL ONE (11:53)
[2022-08-04] MEDS ORDERED: Furosemide 40 MG/4 ML VIAL ONE (12:08)
[2022-08-04] MEDS ORDERED: fentaNYL Citrate/PF 100 MCG/2 ML SYRINGE ONE (12:21)
[2022-08-04] MEDS ORDERED: Acetaminophen 325 MG TAB ONE (12:42)
== END 2022-08-04 15:37 | disposition home or self-care (01) ==
LOC: SDC 05:52
PROVIDERS: ATTEND Internal Medicine Cardiovascular Disease
PROC: B244ZZ3 Ultrasonography of Right Heart, Intravascular (ICD-10-PCS; principal; 2022-08-04)
PROC: 02583ZZ Destruction of Conduction Mechanism, Percutaneous Approach (ICD-10-PCS; 2022-08-04)
PROC: 02K83ZZ Map Conduction Mechanism, Percutaneous Approach (ICD-10-PCS; 2022-08-04)
PROC: 4A023FZ Measurement of Cardiac Rhythm, Percutaneous Approach (ICD-10-PCS; 2022-08-04)
PROC: 4A0234Z Measurement of Cardiac Electrical Activity, Percutaneous Approach (ICD-10-PCS; 2022-08-04)
PROC: 5A2204Z Restoration of Cardiac Rhythm, Single (ICD-10-PCS; 2022-08-04)
DX: I48.19 Other persistent atrial fibrillation (principal); I48.3 Typical atrial flutter; I11.0 Hypertensive heart disease with heart failure; I50.22 Chronic systolic (congestive) heart failure; I42.8 Other cardiomyopathies; I08.1 Rheumatic disorders of both mitral and tricuspid valves; G47.33 Obstructive sleep apnea (adult) (pediatric); E03.9 Hypothyroidism, unspecified; M10.9 Gout, unspecified; Z87.891 Personal history of nicotine dependence; Z79.01 Long term (current) use of anticoagulants; Z79.890 Hormone replacement therapy; Z79.899 Other long term (current) drug therapy; Z95.810 Presence of automatic (implantable) cardiac defibrillator
CPT/HCPCS: 85347 ×2; 85610; 85730; 93005; 93622; 93623; 93655; 93656; C1732 ×3; C1759; C1760; C1769; C1894; J1100; J1644; J1940; J2704; J2720; J3010; J3490

== ENCOUNTER 2023-03-07 12:02 | Inpatient (IN) | payer MEDICARE ==
[~2023-03-07 12:02] MED LIST: Iopamidol-370 76% 500 ML MDV (1 ML CHARGE) ONE
[2023-03-07 12:40] LABS: #Basophils 0.1 thou/uL (0.0-0.2); #Eosinphils 0.2 thou/uL (0.0-0.7); #Monocytes 1.1 thou/uL (0.11-0.59); #Neutrophils 10.7 thou/uL (1.40-6.50); %Basophils 0.7 % (0.0-1.0); %Eosinophils 1.1 % (0.0-10.0); %Lymphocytes 9.2 % (21.0-51.0); %Monocytes 8.5 % (0.0-10.0); Hemoglobin 16.9 g/dL (14.0-18.0); Mean Corpuscular HGB CONC 31.8 g/dL (32.0-36.0); Mean Corpuscular Hemoglobin 28.4 pg (27.0-31.0); Mean Corpuscular Volume 89.3 fl (78.0-98.0); Mean Platelet Volume 8.8 fL (7.4-10.4); Platelet Count 236 10x3/uL (130-400); RBC Distribution Width 14.6 % (11.5-14.5); Red Blood Cell (RBC) Count 5.96 mill/uL (4.70-6.10); White Blood Cell (WBC) Count 13.4 10x3/uL (4.8-10.8)
[2023-03-07] MEDS ORDERED: Piperacillin/Tazobactam 4.5 GM VIAL ONE (12:56)
[2023-03-07 12:57] LABS: ALT (SGPT) 16 U/L (8-55); AST (SGOT) 15 U/L (5-34); Albumin 4.4 g/dL (3.4-4.8); Alkaline Phosphatase 54 U/L (40-110); Anion Gap 15 mmol/L (10-20); BUN (Urea Nitrogen) 13 mg/dL (8.4-25.7); Bilirubin, Total 1.1 mg/dL (0.2-1.2); Calc. Creatinine Clearance 0 mL/min (70-130); Carbon Dioxide 22 mmol/L (23-31); Chloride 103 mmol/L (98-107); Estimated GFR 51; Globulin 2.8 g/dL (2.4-3.5); Glucose 145 mg/dL (80-115); Lipase 280 U/L (8-78); Potassium 4.3 mmol/L (3.5-5.1); Protein, Total 7.2 g/dL (5.8-8.1); Sodium 136 mmol/L (136-145)
[2023-03-07 13:43] LABS: Bilirubin Negative (Negative); Blood, Urine Negative (Negative); Clarity Clear (Clear); Glucose, Urine (Dipstick) Greater than 1000 mg/dL (Negative); Ketone, Urine Negative (Negative); Leukocyte Negative Leu/uL (Negative); Nitrite Negative (Negative); Protein, Urine (Dipstick) Negative (Neg-Trace); Specific Gravity, Urine 1.008 (1.002-1.036); Urobilinogen Normal mg/dL (Less than 2)
[2023-03-07 14:08] LABS: INR-International Normal Ratio 1.4; PTT 38.6 sec (22.9-36.1); Prothrombin Time 17.7 sec (12.0-14.7)
[2023-03-07] MEDS ORDERED: NOREPINEPHRINE 8 MG/250 ML-D5W 250 ML ONE (14:13)
[2023-03-07] MEDS ORDERED: NOREPINEPHRINE 8 MG/250 ML-D5W 250 ML IVPB PRN (16:26)
[2023-03-07] MEDS ORDERED: Acetaminophen 325 MG TAB PO PRN (16:29)
[2023-03-07] MEDS ORDERED: HYDROcodone/Acetaminophen 5/325 mg Tablet PO PRN (16:29)
[2023-03-07] MEDS ORDERED: Piperacillin/Tazobactam 3.375 GM in Sodium Chloride 0.9% 100 ML IVPB SCH ×3 (16:30→17:30)
[2023-03-07] MEDS: Warfarin Sodium 2.5 MG TAB PO SCH (17:30)
[2023-03-07] MEDS: methylPREDNISolone Sod Succ 40 MG VIAL IVP SCH ×2 (17:30→23:16)
[2023-03-07] MEDS: Piperacillin/Tazobactam 3.375 GM in Sodium Chloride 0.9% 100 ML IVPB SCH (17:59)
[2023-03-07] MEDS ORDERED: Diazepam 5 MG TAB PO PRN (18:08)
[2023-03-07] MEDS: Nicotine 14 MG PATCH TD SCH (18:27)
[2023-03-07] MEDS ORDERED: Famotidine 20 MG TAB PO SCH (21:00)
[2023-03-08] MEDS: Piperacillin/Tazobactam 3.375 GM in Sodium Chloride 0.9% 100 ML IVPB SCH ×3 (01:20→17:23)
[2023-03-08 04:19] LABS: #Monocytes 0.1 thou/uL (0.11-0.59); #Neutrophils 10.8 thou/uL (1.40-6.50); %Basophils 0.3 % (0.0-1.0); %Lymphocytes 6.3 % (21.0-51.0); %Monocytes 0.8 % (0.0-10.0); %Neutrophils 91.6 % (42.0-75.0); Hemoglobin 15.4 g/dL (14.0-18.0); Mean Corpuscular HGB CONC 31.5 g/dL (32.0-36.0); Mean Corpuscular Hemoglobin 28.4 pg (27.0-31.0); Mean Corpuscular Volume 90.1 fl (78.0-98.0); Mean Platelet Volume 8.6 fL (7.4-10.4); Platelet Count 243 10x3/uL (130-400); RBC Distribution Width 14.6 % (11.5-14.5); Red Blood Cell (RBC) Count 5.43 mill/uL (4.70-6.10); White Blood Cell (WBC) Count 11.8 10x3/uL (4.8-10.8)
[2023-03-08 04:28] LABS: Hemoglobin A1c 6.6 % (4.0-6.0)
[2023-03-08 04:41] LABS: ALT (SGPT) 13 U/L (8-55); AST (SGOT) 12 U/L (5-34); Albumin 3.8 g/dL (3.4-4.8); Alkaline Phosphatase 44 U/L (40-110); Anion Gap 15 mmol/L (10-20); BUN (Urea Nitrogen) 15 mg/dL (8.4-25.7); Bilirubin, Total 0.7 mg/dL (0.2-1.2); Calc. Creatinine Clearance 89 mL/min (70-130); Calcium 8.3 mg/dL (7.8-10.44); Carbon Dioxide 19 mmol/L (23-31); Chloride 106 mmol/L (98-107); Estimated GFR 53; Glucose 176 mg/dL (80-115); Potassium 3.7 mmol/L (3.5-5.1); Protein, Total 6.8 g/dL (5.8-8.1); Sodium 136 mmol/L (136-145)
[2023-03-08 04:49] LABS: INR-International Normal Ratio 1.6; Prothrombin Time 19.3 sec (12.0-14.7)
[2023-03-08] MEDS: methylPREDNISolone Sod Succ 40 MG VIAL IVP SCH ×2 (05:11→17:09)
[2023-03-08] MEDS ORDERED: Sodium Chloride 0.9% 1,000 ML IV SCH (07:30)
[2023-03-08] MEDS: Levothyroxine Sodium 100 MCG TAB PO SCH (07:42)
[2023-03-08] MEDS: Carvedilol 6.25 MG TAB PO SCH ×2 (08:23→17:09)
[2023-03-08] MEDS ORDERED: methylPREDNISolone Sod Succ 40 MG VIAL IVP SCH (09:00)
[2023-03-08] MEDS: Warfarin Sodium 2.5 MG TAB PO SCH (17:09)
[2023-03-08] MEDS: Sucralfate 1 GM TAB PO SCH ×2 (17:10→21:13)
[2023-03-08] MEDS: Nicotine 14 MG PATCH TD SCH (17:27)
[2023-03-09] MEDS: Piperacillin/Tazobactam 3.375 GM in Sodium Chloride 0.9% 100 ML IVPB SCH ×2 (02:02→10:23)
[2023-03-09 05:25] LABS: #Monocytes 0.7 thou/uL (0.11-0.59); #Neutrophils 12.1 thou/uL (1.40-6.50); %Basophils 0.1 % (0.0-1.0); %Lymphocytes 5.8 % (21.0-51.0); %Neutrophils 88.2 % (42.0-75.0); Hemoglobin 13.8 g/dL (14.0-18.0); Mean Corpuscular HGB CONC 31.2 g/dL (32.0-36.0); Mean Corpuscular Hemoglobin 28.7 pg (27.0-31.0); Mean Corpuscular Volume 92.1 fl (78.0-98.0); Mean Platelet Volume 8.8 fL (7.4-10.4); Platelet Count 201 10x3/uL (130-400); RBC Distribution Width 14.7 % (11.5-14.5); Red Blood Cell (RBC) Count 4.81 mill/uL (4.70-6.10); White Blood Cell (WBC) Count 13.7 10x3/uL (4.8-10.8)
[2023-03-09 05:40] LABS: INR-International Normal Ratio 1.8; Prothrombin Time 21.2 sec (12.0-14.7)
[2023-03-09 06:01] LABS: ALT (SGPT) 11 U/L (8-55); AST (SGOT) 12 U/L (5-34); Albumin 3.6 g/dL (3.4-4.8); Alkaline Phosphatase 44 U/L (40-110); Anion Gap 10 mmol/L (10-20); BUN (Urea Nitrogen) 19 mg/dL (8.4-25.7); Bilirubin, Total 0.3 mg/dL (0.2-1.2); Calc. Creatinine Clearance 110 mL/min (70-130); Calcium 8.1 mg/dL (7.8-10.44); Carbon Dioxide 24 mmol/L (23-31); Chloride 107 mmol/L (98-107); Estimated GFR 71; Globulin 2.7 g/dL (2.4-3.5); Glucose 163 mg/dL (80-115); Potassium 4.3 mmol/L (3.5-5.1); Protein, Total 6.3 g/dL (5.8-8.1); Sodium 137 mmol/L (136-145)
[2023-03-09] MEDS: methylPREDNISolone Sod Succ 40 MG VIAL IVP SCH (06:03)
[2023-03-09] MEDS ORDERED: predniSONE 20 MG TAB PO SCH (08:00)
[2023-03-09] MEDS ORDERED: Non-Formulary Item 1 EACH (Colchicine [Colchicine] 0.6 MG Capsule) PO PRN (08:04)
[2023-03-09] MEDS ORDERED: Diazepam 5 MG TAB PO PRN (08:04)
[2023-03-09] MEDS ORDERED: Colchicine 0.6 MG TAB PO PRN (08:11)
[2023-03-09] MEDS: Sucralfate 1 GM TAB PO SCH (08:31)
[2023-03-09 08:38] VITALS: TEMP 97.4
[2023-03-09] MEDS: Carvedilol 6.25 MG TAB PO SCH (08:40)
[2023-03-09] MEDS: Levothyroxine Sodium 100 MCG TAB PO SCH (08:41)
[2023-03-09] MEDS ORDERED: Vortioxetine Hydrobromide [Trintellix] 10 MG Tablet PO SCH (09:00)
[2023-03-09] MEDS ORDERED: Finasteride 5 MG TAB PO SCH (09:00)
[2023-03-09] MEDS ORDERED: Empagliflozin 25 MG TAB PO SCH (09:00)
[2023-03-09] MEDS ORDERED: Non-Formulary Item 1 EACH (Dapagliflozin Propanediol [Farxiga] 10 MG Tablet) PO SCH (09:00)
[2023-03-09 12:08] VITALS: BMI 38.5
[2023-03-09 12:15] VITALS: BP 134/68
[2023-03-09] MEDS ORDERED: Warfarin Sodium 5 MG TAB PO SCH (17:00)
== END 2023-03-09 14:45 | disposition home or self-care (01) | DRG 871 ==
LOC: SUATTDRO 12:02 → ERS 12:02 → CCU 15:49 → 2SW 03-08 19:47
PROVIDERS: ADMIT Internal Medicine; ATTEND Emergency Medicine
PROC: 3E03329 Introduction of Other Anti-infective into Peripheral Vein, Percutaneous Approach (ICD-10-PCS; principal; 2023-03-07)
PROC: 3E033XZ Introduction of Vasopressor into Peripheral Vein, Percutaneous Approach (ICD-10-PCS; 2023-03-07)
DX: A41.9 Sepsis, unspecified organism (principal); R65.21 Severe sepsis with septic shock; I50.22 Chronic systolic (congestive) heart failure; K57.32 Diverticulitis of large intestine without perforation or abscess without bleeding; N17.9 Acute kidney failure, unspecified; I48.21 Permanent atrial fibrillation; E03.9 Hypothyroidism, unspecified; G47.33 Obstructive sleep apnea (adult) (pediatric); Z96.651 Presence of right artificial knee joint; F41.9 Anxiety disorder, unspecified; F32.A Depression, unspecified; Z79.899 Other long term (current) drug therapy; Z79.890 Hormone replacement therapy; Z95.810 Presence of automatic (implantable) cardiac defibrillator
CPT/HCPCS: 36415; 36416; 36556; 74177; 80053; 81003; 83036; 83605; 83690; 83880; 84484; 85025; 85610; 85730; 87040; 87086; 93005; 96365; 96366; 96367; J2543; J2920; J3490; J7050; J7512; Q9967

== ENCOUNTER 2023-08-21 07:24 | Emergency (ER) | payer MEDICARE ==
[2023-08-21 08:06] LABS: #Basophils 0.1 thou/uL (0.0-0.2); #Eosinphils 0.2 thou/uL (0.0-0.7); #Monocytes 0.7 thou/uL (0.11-0.59); #Neutrophils 6.5 thou/uL (1.40-6.50); %Basophils 0.8 % (0.0-1.0); %Eosinophils 1.7 % (0.0-10.0); %Lymphocytes 13.6 % (21.0-51.0); %Monocytes 8.4 % (0.0-10.0); %Neutrophils 74.9 % (42.0-75.0); Hematocrit 47.5 % (42.0-52.0); Hemoglobin 15.5 g/dL (14.0-18.0); Mean Corpuscular HGB CONC 32.6 g/dL (32.0-36.0); Mean Corpuscular Hemoglobin 28.4 pg (27.0-31.0); Mean Platelet Volume 8.5 fL (7.4-10.4); Platelet Count 169 10x3/uL (130-400); Red Blood Cell (RBC) Count 5.46 mill/uL (4.70-6.10); White Blood Cell (WBC) Count 8.6 10x3/uL (4.8-10.8)
[2023-08-21 08:29] LABS: ALT (SGPT) 11 U/L (8-55); AST (SGOT) 14 U/L (5-34); Albumin 4.3 g/dL (3.4-4.8); Alkaline Phosphatase 49 U/L (40-110); Anion Gap 16 mmol/L (10-20); BUN (Urea Nitrogen) 10 mg/dL (8.4-25.7); Bilirubin, Total 1.1 mg/dL (0.2-1.2); Calc. Creatinine Clearance 0 mL/min (70-130); Calcium 8.7 mg/dL (7.8-10.44); Carbon Dioxide 22 mmol/L (23-31); Chloride 100 mmol/L (98-107); Estimated GFR 65; Globulin 2.6 g/dL (2.4-3.5); Glucose 164 mg/dL (83-110); Lipase 19 U/L (8-78); Potassium 3.5 mmol/L (3.5-5.1); Protein, Total 6.9 g/dL (5.8-8.1); Sodium 134 mmol/L (136-145)
[2023-08-21 08:34] LABS: INR-International Normal Ratio 1.9; PTT 38.3 sec (22.9-36.1)
[2023-08-21] MEDS ORDERED: LevoFLOXacin 750 mg/D5W 150 ml Premix Bag ONE (08:41)
[2023-08-21 09:22] LABS: Bacteria/HPF None Seen HPF (None Seen); Bilirubin Negative (Negative); Blood, Urine Negative (Negative); CAUTI Indications for Culture Pelvic or flank pain; Clarity Clear (Clear); Glucose, Urine (Dipstick) 500 mg/dL (Negative); Ketone, Urine Negative (Negative); Leukocyte Negative Leu/uL (Negative); Nitrite Negative (Negative); Protein, Urine (Dipstick) Negative (Neg-Trace); RBC/HPF None Seen HPF (0-3); Specific Gravity, Urine 1.016 (1.002-1.036); Squamous Epithelial None Seen HPF (0-3); Urobilinogen Normal mg/dL (Less than 2); WBC/HPF 0-3 HPF (0-3); pH, Urine 6.5 (5.0-9.0)
[2023-08-21 09:24] LABS: Urine Culture Reflex No No
[2023-08-21] MEDS ORDERED: Iopamidol-370 76% 500 ML MDV (1 ML CHARGE) ONE (10:14)
== END 2023-08-21 11:22 | disposition home or self-care (01) ==
LOC: ERS 07:24
DX: K57.92 Diverticulitis of intestine, part unspecified, without perforation or abscess without bleeding (principal); I48.91 Unspecified atrial fibrillation
CPT/HCPCS: 74177; 80053; 81001; 83690; 85025; 85610; 85730; 93005; 96365; 96366; J1956; Q9967